=== PATIENT | male | born 1990 | race African-American/Black ===

== ENCOUNTER 2017-11-22 09:54 | Emergency (ER) | payer OTHER ==
[2017-11-22 09:59] VITALS: BP 125/68; PULSE 98; RESP 16; TEMP 99; O2SAT 95
--- NOTE | 2017-11-22 10:26 | EDPHY ---
H & P Time Seen by Provider: 11/22/17 10:15 HPI/ROS: CHIEF COMPLAINT: Sore throat concerned about strep HISTORY OF PRESENT ILLNESS: 27-year-old immunocompetent male complaining of 2 days of sore throat, concerned about strep pharyngitis. No trismus no drooling. No nuchal rigidity. No headache. No nausea or vomiting. No abdominal pain. No rash. No adenopathy. No flu-like symptoms. No cough. No dyspnea. REVIEW OF SYSTEMS: A ten point review of systems was performed and is negative with the exception of the items mentioned in the HPI PAST MEDICAL & SURGICAL HISTORY: No pertinent medical or surgical history SOCIAL HISTORY:Nonsmoker PHYSICAL EXAM (Prior to examination, patient consented to physical exam, hands were washed and my usual and customary physical exam procedures followed) 1) GENERAL: Well-developed, well-nourished, alert and oriented. Appears to be in no acute distress. 2) HEAD: Normocephalic, atraumatic 3) HEENT: Pupils equal, round, reactive to light bilaterally. Sclera anicteric. Nasopharynx, oropharynx, clear, no lesions. No tonsillar enlargement. No tonsillar exudate. No trismus no drooling. No hot potato voice. No pointing of the uvula. Ears bilaterally with normal tympanic membranes. 4) NECK: Full range of motion, no meningeal signs. No adenopathy 5) LUNGS: Clear auscultation bilaterally, no wheezes, no rhonchi, no retractions. 6) HEART: Regular rate and rhythm, no murmur, no heave, no gallop. 7) ABDOMEN: No guarding, no rebound, no focal tenderness, negative McBurney's, negative Womack's, negative Rovsing's, negative peritoneal sign, 8) MUSCULOSKELETAL: Moving all extremities, no focal areas of tenderness, no obvious trauma. No peripheral edema or discoloration. 9) BACK: No CVA tenderness, no midline vertebral tenderness, no fluctuance, no step-off, no obvious trauma, no visual or palpable abnormality. 10) SKIN: No rash, no petechiae. 11) Psychiatric: Patient is oriented X 3, there is no agitation. DIFFERENTIAL DIAGNOSIS: In no particular include but limited to mononucleosis, viral pharyngitis, strep pharyngitis, peritonsillar abscess Smoking Status: Never smoked Constitutional: Initial Vital Signs Temperature (C) 37.2 C 11/22/17 09:57 Heart Rate 98 11/22/17 09:57 Respiratory Rate 16 11/22/17 09:57 Blood Pressure 125/68 H 11/22/17 09:57 O2 Sat (%) 95 11/22/17 09:57 O2 Delivery Mode Room Air Allergies/Adverse Reactions: No Known Allergies Allergy (Unverified 07/05/16 15:02) Home Medications: Medication Instructions Recorded NK [No Known Home Meds] 07/05/16 MDM/Departure - MDM ED Course/Re-evaluation: I reviewed the patient his negative rapid strep testing. I have a low clinical suspicion for strep pharyngitis. Doubt mononucleosis. Doubt peritonsillar abscess. Doubt epiglottitis. We discussed supportive therapy. No antibiotics. No steroids at this time. He feels comfortable with this plan. Usual customary pharyngitis precautions instructions provided. Care of patient under supervision of secondary supervising physician Dr Ramos. - Depart Disposition: Home, Routine, Self-Care Clinical Impression: Pharyngitis Qualifiers: Pharyngitis/tonsillitis etiology: unspecified etiology Qualified Code(s): J02.9 - Acute pharyngitis, unspecified Condition: Good Instructions: Pharyngitis (ED) Additional Instructions: Return to the ER immediately if you cannot swallow, have drooling, fevers, neck stiffness, cannot open your jaw, or any other symptoms that concern you. Adult Pain & Fever Control: We recommend Acetaminophen (Tylenol) and Ibuprofen (Motrin,Advil) for pain and fever control. When fever is high or pain severe, both drugs can be used at the same time, but at different intervals. Please note the time differences. Your dose is: Acetaminophen 1000mg every 4 to 6 hours Ibuprofen 800mg every 6 hours with food Note: do not take Acetaminophen with Hydrocodone (Vicodin, Lortab) or Oycodone (Percocet). These medications also contain Acetaminophen. No more than 3000mg of Acetaminophen should be taken in 24 hours (for an adult). Referrals: Shayy Ledesma MD [Medical Doctor] - 2-3 days, call for appt.
== END 2017-11-22 10:50 | disposition home or self-care (01) ==
DX: J02.9 Acute pharyngitis, unspecified (principal)